=== PATIENT | male | born 1950 | race Caucasian/White ===

== ENCOUNTER 2022-06-22 12:15 | Inpatient (IN) | payer MEDICARE, OTHER ==
[~2022-06-22] VITALS: Ht 172.7 cm; Wt 62.8 kg
[2022-06-22] MEDS ORDERED: SODIUM CHLORIDE 0.9% 1,000 ML IV ONE (12:30)
[2022-06-22 13:25] LABS: Basophils # (auto) 0.1 10 ^3/uL (0-0.2); Basophils % (auto) 0.6 % (0.0-2.0); Eosinophils # (auto) 0.2 10 ^3/uL (0-0.8); Eosinophils % (auto) 1.6 % (0.0-7.0); Hematocrit 32.8 % (41.0-53.0); Hemoglobin 10.7 g/dL (13.5-17.5); Lymphocytes # (auto) 1.2 10 ^3/uL (0.4-5.4); Mean Corpuscular Hemoglobin 30.5 pg (28.0-32.0); Mean Corpuscular Hgb Conc. 32.6 g/dL (32.0-36.0); Mean Corpuscular Volume 93.4 fL (80.0-100.0); Monocytes # (auto) 1.5 10 ^3/uL (0-1.3); Neutrophils # (auto) 7.6 10 ^3/uL (1.6-8.6); Neutrophils % (auto) 72.8 % (37.0-80.0); Red Blood Cells 3.52 10^6/uL (4.5-5.90); Red Cell Distribution Width 13.3 % (11.8-14.3); White Blood Cell 10.5 10^3/uL (4.4-10.8)
[2022-06-22 15:07] LABS: BUN/Creatinine Ratio 14.5; Potassium 3.6 mmol/L (3.5-5.1)
[2022-06-22 15:08] LABS: Albumin 2.5 g/dL (3.4-5.0); Bilirubin, Total 0.7 mg/dL (0.2-1.0); Calcium 8.1 mg/dL (8.5-10.1); Total Protein 6.1 g/dL (6.4-8.2)
[2022-06-22] MEDS ORDERED: ZOLP10TA6 PO (16:37)
[2022-06-22] MEDS ORDERED: GABA-339 PO (16:37)
[2022-06-22] MEDS ORDERED: BACL20TA PO (16:37)
[2022-06-22] MEDS ORDERED: ONDANSETRON HCL 4 MG/2 ML VIAL IV PRN (16:45)
[2022-06-22] MEDS ORDERED: MORPHINE SULFATE INJ 2 MG/ml SYRG IV PRN (16:45)
[2022-06-22] MEDS ORDERED: ACETAMINOPHEN 325 MG TAB PO PRN (16:45)
[2022-06-22] MEDS ORDERED: NITROGLYCERIN 0.4 MG SL TAB SL PRN (16:45)
[2022-06-22] MEDS ORDERED: DOCUSATE SOD 100 MG CAP PO PRN (16:45)
[2022-06-22] MEDS ORDERED: GLYCERIN ADULT RECTAL SUPP PR PRN (16:45)
[2022-06-22] MEDS ORDERED: hydrALAZINE HCL 20 MG/ML VL IV PRN (19:30)
[2022-06-22] MEDS: GABAPENTIN 300 MG CAP PO SCH (21:47)
[2022-06-22] MEDS: BACLOFEN 10 MG TAB PO SCH ×2 (21:47→21:51)
[2022-06-22] MEDS: ZOLPIDEM TARTRATE 5 MG TAB PO PRN (23:47)
[2022-06-23] MEDS: GABAPENTIN 300 MG CAP PO SCH ×3 (06:38→23:50)
[2022-06-23] MEDS: BACLOFEN 10 MG TAB PO SCH ×4 (06:43→23:50)
[2022-06-23 07:19] LABS: Basophils # (auto) 0.1 10 ^3/uL (0-0.2); Basophils % (auto) 0.6 % (0.0-2.0); Eosinophils # (auto) 0.2 10 ^3/uL (0-0.8); Eosinophils % (auto) 2.1 % (0.0-7.0); Hematocrit 33.5 % (41.0-53.0); Hemoglobin 11.2 g/dL (13.5-17.5); Lymphocytes # (auto) 1.8 10 ^3/uL (0.4-5.4); Mean Corpuscular Hgb Conc. 33.3 g/dL (32.0-36.0); Mean Corpuscular Volume 93.2 fL (80.0-100.0); Monocytes # (auto) 1.2 10 ^3/uL (0-1.3); Monocytes % (auto) 11.9 % (0.0-12.0); Neutrophils # (auto) 6.8 10 ^3/uL (1.6-8.6); Neutrophils % (auto) 67.4 % (37.0-80.0); Nucleated Red Blood Cells % 0.1 %; Red Cell Distribution Width 13.2 % (11.8-14.3); White Blood Cell 10.1 10^3/uL (4.4-10.8)
[2022-06-23 07:20] LABS: Albumin 2.7 g/dL (3.4-5.0); Calcium 8.6 mg/dL (8.5-10.1); Potassium 3.1 mmol/L (3.5-5.1)
[2022-06-23 07:27] LABS: BUN/Creatinine Ratio 22.2; Total Protein 6.3 g/dL (6.4-8.2)
[2022-06-23] MEDS: PANTOPRAZOLE 40 MG/10 ML VIAL INJ IV SCH (12:19)
[2022-06-23] MEDS: ENOXAPARIN SOD 30 MG/0.3 ML SYRINGE SC SCH (12:19)
[2022-06-23] MEDS: ASPirin 81 mg TAB PO SCH (12:20)
[2022-06-23] MEDS ORDERED: LORazepam 2MG/ML-1ML VIAL IV PRN (21:00)
[2022-06-23 22:20] LABS: Cholesterol 135 mg/dL (< 200); Triglycerides 73 mg/dL (< 150)
[2022-06-23 22:22] LABS: HDL Cholesterol 45 mg/dL (40-59); LDL Cholesterol 93 mg/dL (< 100)
[2022-06-23 22:28] VITALS: BP 111/54
[2022-06-23] MEDS: ZOLPIDEM TARTRATE 5 MG TAB PO PRN (23:50)
[2022-06-24 05:00] VITALS: BP 123/66
[2022-06-24] MEDS: GABAPENTIN 300 MG CAP PO SCH ×3 (05:14→22:05)
[2022-06-24] MEDS: BACLOFEN 10 MG TAB PO SCH ×4 (05:15→22:06)
[2022-06-24 09:00] VITALS: BP 86/46
[2022-06-24] MEDS: ASPirin 81 mg TAB PO SCH (11:12)
[2022-06-24] MEDS: PANTOPRAZOLE 40 MG/10 ML VIAL INJ IV SCH (11:12)
[2022-06-24] MEDS: ENOXAPARIN SOD 30 MG/0.3 ML SYRINGE SC SCH (11:12)
[2022-06-24 13:00] VITALS: BP 87/39
[2022-06-24] MEDS: HYDROcodone-ACET 5/325MG TAB PO PRN (13:18)
[2022-06-24 17:00] VITALS: BP 121/61
[2022-06-24 22:00] VITALS: BP 101/48
[2022-06-24] MEDS: ZOLPIDEM TARTRATE 5 MG TAB PO PRN (22:05)
[2022-06-25] VITALS (9 sets, daily range): BP systolic 85–153; BP diastolic 45–74
[2022-06-25] MEDS: HYDROcodone-ACET 5/325MG TAB PO PRN ×2 (00:33→17:38)
[2022-06-25] MEDS: GABAPENTIN 300 MG CAP PO SCH ×2 (06:00→17:16)
[2022-06-25] MEDS: BACLOFEN 10 MG TAB PO SCH ×3 (06:00→17:17)
[2022-06-25] MEDS ORDERED: ASPI-498 PO (08:50)
[2022-06-25] MEDS: ASPirin 81 mg TAB PO SCH (11:47)
[2022-06-25] MEDS: ENOXAPARIN SOD 30 MG/0.3 ML SYRINGE SC SCH (11:47)
[2022-06-25] MEDS: PANTOPRAZOLE 40 MG/10 ML VIAL INJ IV SCH (11:47)
== END 2022-06-25 22:17 | disposition home or self-care (01) | DRG 69 ==
LOC: ER 12:15 → EDBD 12:15 → TELE 16:37 → TELE-CENTR 06-23 21:53
PROVIDERS: ADMIT Nurse Practitioner Family; ATTEND Family Medicine
DX: G45.9 Transient cerebral ischemic attack, unspecified (principal); G82.50 Quadriplegia, unspecified; G95.9 Disease of spinal cord, unspecified; I10 Essential (primary) hypertension; J44.9 Chronic obstructive pulmonary disease, unspecified; I95.9 Hypotension, unspecified; K21.9 Gastro-esophageal reflux disease without esophagitis; Z20.822 Contact with and (suspected) exposure to COVID-19; Z74.01 Bed confinement status; Z82.3 Family history of stroke
CPT/HCPCS: 36415; 70450; 70551; 71045; 80053; 80061; 83880; 84484; 85025; 87426; 87804; 93005; 93306; 93886; C9113; G0378

== ENCOUNTER 2022-12-30 15:53 | Emergency (ER) | payer MEDICARE, OTHER ==
[~2022-12-30] VITALS: Ht 172.7 cm; Wt 40.9 kg
[~2022-12-30 15:53] MED LIST: ASPI-498 PO; BACL20TA PO; GABA-339 PO; ZOLP10TA6 PO
[2022-12-30 20:42] LABS: Basophils # (auto) 0.1 10 ^3/uL (0-0.2); Basophils % (auto) 0.5 % (0.0-2.0); Eosinophils # (auto) 0.5 10 ^3/uL (0-0.8); Eosinophils % (auto) 3.6 % (0.0-7.0); Hematocrit 32.7 % (41.0-53.0); Hemoglobin 10.4 g/dL (13.5-17.5); Lymphocytes % (auto) 15.3 % (10.0-50.0); Mean Corpuscular Hemoglobin 28.5 pg (28.0-32.0); Mean Corpuscular Hgb Conc. 31.6 g/dL (32.0-36.0); Monocytes % (auto) 8.1 % (0.0-12.0); Neutrophils # (auto) 9.3 10 ^3/uL (1.6-8.6); Neutrophils % (auto) 72.5 % (37.0-80.0); Red Blood Cells 3.64 10^6/uL (4.5-5.90); Red Cell Distribution Width 15.7 % (11.8-14.3); White Blood Cell 12.8 10^3/uL (4.4-10.8)
[2022-12-30 21:56] LABS: Alanine Aminotransferase 16 U/L (16-61); Albumin 2.8 g/dL (3.4-5.0); Alkaline Phosphatase 85 U/L (45-117); Anion Gap 5 (5-15); Aspartate Aminotransferase 14 U/L (15-37); BUN/Creatinine Ratio 36.8 (10.0-20.0); Bilirubin, Total 0.2 mg/dL (0.2-1.0); Blood Alcohol < 3.0 mg/dL (0-5); Blood Urea Nitrogen 21 mg/dL (7-18); Calcium 11.7 mg/dL (8.5-10.1); Carbon Dioxide 24 mmol/L (21-32); Chloride 110 mmol/L (98-107); GFR African American 182 mL/min; GFR Non-African American 150 mL/min; Glucose 82 mg/dL (74-106); Lipase 68 U/L (73-393); Magnesium 1.9 mg/dL (1.6-2.6); Potassium 3.9 mmol/L (3.5-5.1); Sodium 139 mmol/L (136-145); Total Protein 6.5 g/dL (6.4-8.2)
[2022-12-30] MEDS ORDERED: MELATONIN 5 MG TAB PO ONE (22:00)
[2022-12-31] MEDS ORDERED: AZITHROMYCIN 500MG/ 250ML 250 ML IV ONE (00:30)
[2022-12-31] MEDS ORDERED: LACTATED RINGER S IV ONE (00:30)
[2022-12-31] MEDS ORDERED: cefTRIAXone 1GM/50ML D5W 50 ML IV ONE (00:30)
[2022-12-31] MEDS ORDERED: LEVO750T8 PO (08:53)
[2022-12-31 10:30] VITALS: BP 112/64
== END 2022-12-31 10:43 | disposition home or self-care (01) ==
LOC: EDBD 15:53 → EDUNIT# 15:53 → ER 15:53
DX: I63.81 Other cerebral infarction due to occlusion or stenosis of small artery (principal); J18.9 Pneumonia, unspecified organism; D64.9 Anemia, unspecified; D72.829 Elevated white blood cell count, unspecified; E86.0 Dehydration; R79.89 Other specified abnormal findings of blood chemistry; E83.52 Hypercalcemia; E88.09 Other disorders of plasma-protein metabolism, not elsewhere classified; Z93.3 Colostomy status
CPT/HCPCS: 36415; 70450; 71045; 80053; 80320; 83605; 83690; 83735; 84443; 84484; 85025; 93005; 96365; 96366; 96367; 99285; J0456; J0696